=== PATIENT | female | born 1965 | race Caucasian/White ===

== ENCOUNTER 2020-01-01 06:29 | Day surgery (SDC) | payer BC ==
[~2020-01-01] VITALS: Ht 170.2 cm; Wt 86.1 kg
[2020-01-01] VITALS (10 sets, daily range): BP systolic 111–177; BP diastolic 59–85; PULSE 68–85; TEMP 97.4–99
--- NOTE | 2020-01-01 07:42 | NUR ---
The nurse called the anesthesia office to report the patient's blood sugar of 256. Spoke to Latonya Marx CRNA who verbalized understanding of the report given. Orders for new medication were obtained and entered in the computer at this time. Will continue to monitor the patient.
[2020-01-01 07:47] LABS: CALCIUM 9.3 mg/dL (8.4-10.2); CREATININE, serum 0.34 (0.52-1.25); POTASSIUM 3.8 mmol/L (3.4-5.0)
--- NOTE | 2020-01-01 08:14 | NUR ---
The patient's blood sugar was rechecked with a result of 267. Latonya Seals CRNA was notified of the patient's blood sugar and her current order for D5 1/2 NS for IV fluids. He gave orders to discontinue the current IV fluids and start NS prior to surgery. The fluids were switched prior to the patient going back to the operating room.
--- NOTE | 2020-01-01 08:14 | NUR ---
Initial visit; Patient and her thanked Research Pharmacist for offering encouragement and prayer prior to her surgical procedure.
--- NOTE | 2020-01-01 12:20 | NUR ---
Patient to room from PACU via bed. Patient alert and oriented x3, drowsy. Denies pain. Baig to dependent drainage draining clear yellow urine. Abd lap sites x5 with edges well approximated, no redness/swelling/discharge from any of the sites, swiftset in place. Patient is on oxygen at 2L/NC due to drowsiness. Spouse in room with the patient. Denies additional needs.
[2020-01-01] MEDS ORDERED: FARXIGA10 PO (12:56)
[2020-01-01] MEDS ORDERED: JANUVIA 100MG100 MG PO (12:57)
[2020-01-01] MEDS ORDERED: LEVEMIR100 U/ML SQ (12:58)
[2020-01-01] MEDS ORDERED: TYLENOL 500MG500 MG PO (12:59)
[2020-01-01] MEDS ORDERED: MOTRIN 200200 MG/TAB PO (13:01)
--- NOTE | 2020-01-01 13:14 | NUR ---
Patient nauseated and has an episode of emesis. Administer Zofran as prescribed. Patient says that she is feeling better, thinks may be due to feeling "stuffy". Decreased room temp. Patient denies additional needs at this time.
--- NOTE | 2020-01-01 13:42 | NUR ---
Patient reports nausea is better. Remains resting in bed at this time. Denies needs. Spouse in room.
--- NOTE | 2020-01-01 16:15 | NUR ---
Lying in bed with eyes open. No nausea, tolerating PO fluids without difficulty. Rates pain about 2/10 at this time. Discussed with the patient activity and getting out of bed for two hours this evening. Patient agrees. Will unhook IV fluids at this time.
--- NOTE | 2020-01-01 16:30 | NUR ---
Patient assisted to edge of bed. Stands without difficulty. Patient ambulates around bed and sits up in chair. Gait steady. Says that she feels okay getting up and moving around. Sits in recliner. Denies additional needs at this time.
--- NOTE | 2020-01-01 17:05 | NUR ---
Patient requests to get back in bed. Assist patient from chair to bed. Gait steady. Patient denies additional needs at this time.
--- NOTE | 2020-01-01 20:00 | NUR ---
Bedside report received, assumed care for mica splitter. Assessment complete. VS stable. A&Ox3. Denies pain/nausea/shortness of breath. INT to left hand flushes without difficulty. Lap sites x5 to abdomen-edges well approximated-ferreira set. Jasso cath with clear yellow urine. Plan of care discussed for this shift to include up to chair as ordered/pain mangement/calling for questions/concerns. Discussed DC of jasso cath in AM. Denies questions/concerns. Call light in reach. WIll monitor.
[2020-01-02 00:33] VITALS: BP 110/53; PULSE 75; TEMP 98.3
[2020-01-02 03:35] VITALS: BP 112/64; PULSE 68; TEMP 98.1
--- NOTE | 2020-01-02 05:53 | NUR ---
Baig cath DCd at this time. Tolerated well. Denies pain/nausea/shortness of breath. VS have been stable. Has been up out of bed. Tolerating PO. Denies current needs. Call light in reach/bed in low position/wheels locked. Will monitor.
[2020-01-02 06:55] VITALS: BP 121/69; PULSE 84; TEMP 98.4
--- NOTE | 2020-01-02 07:54 | NUR ---
Patient resting in bed. [place] rounded, plan of care reviewed. Bon hopeful for discharge this afternoon. Patient tolerated breakfast, insulin per sliding scale. Safia lau and bon has voided. She denies nausea. Minimal complaints of pain. Tristen cuevas.
[2020-01-02 10:15] VITALS: BP 150/78; PULSE 76; TEMP 98.9
[2020-01-02 11:35] VITALS: BP 143/72; PULSE 81; TEMP 98.4
--- NOTE | 2020-01-02 11:36 | NUR ---
Follow-up visit; Patient thanked [employer] Cashier for looking in on her again today and offering God's blessings and continued good health.
--- NOTE | 2020-01-02 15:08 | NUR ---
Patient ready for discharge. We reviewed all discharge education. Diet & activity restrcitions reviewed. Follow up appt discussed.Dhiraj to keep log of blood sugars for her PCP to review. Patient sent with script for [facility]. Home med list reviewed. Int DC. Dhiraj denies questions or concerns. Patient ambulated out with all belongings, her spouse taking her home
== END 2020-01-02 15:09 | disposition home or self-care (01) ==
LOC: SDCO 06:29 → SURG 12:17 → SDCO 01-02 15:09
PROVIDERS: Nurse Anesthetist, Certified Registered
DX: N99.3 Prolapse of vaginal vault after hysterectomy (principal); E11.65 Type 2 diabetes mellitus with hyperglycemia; E11.21 Type 2 diabetes mellitus with diabetic nephropathy; Z20.828 Contact with and (suspected) exposure to other viral communicable diseases; Z79.899 Other long term (current) drug therapy; Z79.4 Long term (current) use of insulin; Z88.0 Allergy status to penicillin; Z88.8 Allergy status to other drugs, medicaments and biological substances; Z91.11 Patient's noncompliance with dietary regimen; Z98.51 Tubal ligation status; Z90.710 Acquired absence of both cervix and uterus; Z80.0 Family history of malignant neoplasm of digestive organs
CPT/HCPCS: OP; 99214; 99223; 99232-AI; A4314; A9284; C1769; C1781; J1650; J1815; J1885; J2250; J2405; J2704; J3010; J7030; J7120